=== PATIENT | male | born 1955 | race Caucasian/White ===

== ENCOUNTER 2019-03-26 14:35 | Emergency (ER) | payer MEDICARE, BC ==
--- NOTE | 2019-03-26 15:17 | EDM.PDOC ---
ED HPI GENERAL MEDICAL PROBLEM - General Chief Complaint: Skin Complaint Stated Complaint: FISH HOOK LEFT THUMB Time Seen by Provider: 03/26/19 15:02 Source of Information: Reports: Patient History Limitations: Reports: No Limitations - History of Present Illness INITIAL COMMENTS - FREE TEXT/NARRATIVE: 64 yo male presents to ER with fishhook in right thumb. - Related Data Allergies Allergy/AdvReac Type Severity Reaction Status Date / Time No Known Allergies Allergy Verified 03/26/19 14:59 Home Meds: Home Meds NK [No Known Home Meds] 03/26/19 [History] Past Medical History - Past Health History Medical/Surgical History: Denies Medical/Surgical History Social & Family History - Tobacco Use Smoking Status *Q: Never Smoker ED ROS GENERAL - Review of Systems Review Of Systems: See Below Constitutional: Denies: Fever, Chills Respiratory: Denies: Shortness of Breath, Wheezing Cardiovascular: Denies: Chest Pain ED EXAM, SKIN/RASH Exam: See Below Text/Narrative:: exam limited to left thumb Exam Limited By: No Limitations General Appearance: Alert, WD/WN, No Apparent Distress ED SKIN PROCEDURES - Additional/Other Procedure(s) Other (Free Text) Procedure(s): area of puncture cleansed with alcohol and infiltrated with 1 mL of 1% Lidocaine. hook removed with counter pressure technique. pt tolerated well. washed with warm soapy water and covered with band-aid Course - Vital Signs Last Recorded V/S: Last Vital Signs Temp 36.3 C 03/26/19 15:03 Pulse 84 03/26/19 15:03 Resp 17 03/26/19 15:03 BP 142/102 H 03/26/19 15:03 Pulse Ox 96 03/26/19 15:03 - Orders/Labs/Meds Meds: Medications Discontinued Medications Generic Name Dose Route Start Last Admin Trade Name Freq PRN Reason Stop Dose Admin Lidocaine HCl 5 ml 03/26/19 15:03 Xylocaine-Mpf 1% INJECT 03/26/19 15:04 ONETIME ONE Departure - Departure Time of Disposition: 15:15 Disposition: Home, Self-Care 01 Condition: Good Clinical Impression: Fish hook injury of finger Qualifiers: Encounter type: initial encounter Laterality: left Qualified Code(s): S69.92XA - Unspecified injury of left wrist, hand and finger(s), initial encounter - Discharge Information *PRESCRIPTION DRUG MONITORING PROGRAM REVIEWED*: Not Applicable *COPY OF PRESCRIPTION DRUG MONITORING REPORT IN PATIENT ABDELRAHMAN: Not Applicable Instructions: Puncture Wound, [id number] Referrals: PCP,None [Primary Care Provider] - Forms: ED Department Discharge Additional Instructions: wash with warm soapy water observe for signs of infection - fire engine red, purulent drainage or increase in pain
== END 2019-03-26 15:30 | disposition home or self-care (01) ==
LOC: JP.ED 14:35
DX: S60.352A Superficial foreign body of left thumb, initial encounter (principal); W45.8XXA Other foreign body or object entering through skin, initial encounter
CPT/HCPCS: 99283; J2001